=== PATIENT | female | born 1995 | race Two or more races ===

== ENCOUNTER 2018-07-05 22:01 | Emergency (ER) | payer OTHER ==
[~2018-07-05] VITALS: Ht 162.6 cm; Wt 65.8 kg
== END 2018-07-05 22:34 | disposition home or self-care (01) ==
LOC: ER 22:01
DX: S30.0XXA Contusion of lower back and pelvis, initial encounter (principal); S10.83XA Contusion of other specified part of neck, initial encounter; S80.11XA Contusion of right lower leg, initial encounter; W07.XXXA Fall from chair, initial encounter; Y93.89 Activity, other specified; Y92.69 Other specified industrial and construction area as the place of occurrence of the external cause; Y99.8 Other external cause status